=== PATIENT | male | born 1960 | race Two or more races ===

== ENCOUNTER 2019-11-13 08:48 | Outpatient (CLI) | payer OTHER | END 2019-11-13 09:03 | disposition home or self-care (01) | LOC: RAD 08:48 | PROVIDERS: ATTEND Internal Medicine | DX: M54.5 Low back pain (principal); M25.512 Pain in left shoulder; M54.2 Cervicalgia; R07.89 Other chest pain ==

== ENCOUNTER 2019-12-29 10:32 | Outpatient (CLI) | payer OTHER | END 2019-12-29 10:37 | disposition home or self-care (01) | LOC: NUCLEAR 10:32 | PROVIDERS: ATTEND Internal Medicine | DX: I67.89 Other cerebrovascular disease (principal); I77.9 Disorder of arteries and arterioles, unspecified ==

== ENCOUNTER 2020-08-22 08:13 | Outpatient (CLI) | payer OTHER ==
[~2020-08-22 08:13] MED LIST: CELEBREX200MG PO; SKELAXIN800 MG PO; ZANAFLEX2 MG PO
[2020-09-07] MEDS ORDERED: NABUMETONE750 MG PO (16:20)
== END 2020-08-22 08:19 | disposition home or self-care (01) ==
LOC: LAB 08:13
PROVIDERS: ATTEND Internal Medicine
DX: R19.5 Other fecal abnormalities (principal); E03.9 Hypothyroidism, unspecified; E53.9 Vitamin B deficiency, unspecified; D64.9 Anemia, unspecified; I10 Essential (primary) hypertension; E78.2 Mixed hyperlipidemia; N40.0 Benign prostatic hyperplasia without lower urinary tract symptoms; I80.9 Phlebitis and thrombophlebitis of unspecified site; N39.0 Urinary tract infection, site not specified; R80.1 Persistent proteinuria, unspecified

== ENCOUNTER 2020-08-23 10:12 | Outpatient (CLI) | payer OTHER ==
[2020-09-07] MEDS ORDERED: NABUMETONE750 MG PO (16:20)
== END 2020-08-23 15:00 | disposition home or self-care (01) ==
LOC: LAB 10:12
PROVIDERS: ATTEND Internal Medicine
DX: R19.5 Other fecal abnormalities (principal); E03.9 Hypothyroidism, unspecified; E53.9 Vitamin B deficiency, unspecified; D64.9 Anemia, unspecified; I10 Essential (primary) hypertension; E78.2 Mixed hyperlipidemia; N40.0 Benign prostatic hyperplasia without lower urinary tract symptoms; I80.9 Phlebitis and thrombophlebitis of unspecified site; N39.0 Urinary tract infection, site not specified; R80.1 Persistent proteinuria, unspecified

== ENCOUNTER → 2021-02-04 08:47 | Outpatient (CLI) | payer OTHER ==
[~2021-02-04 08:47] MED LIST changes: +NABUMETONE750 MG PO
== END | disposition home or self-care (01) ==
LOC: LAB 08:47
PROVIDERS: ATTEND Internal Medicine
DX: I10 Essential (primary) hypertension (principal); E55.9 Vitamin D deficiency, unspecified; D64.89 Other specified anemias; E11.69 Type 2 diabetes mellitus with other specified complication; I65.29 Occlusion and stenosis of unspecified carotid artery; R06.81 Apnea, not elsewhere classified; Z68.31 Body mass index [BMI] 31.0-31.9, adult; F41.8 Other specified anxiety disorders; E78.00 Pure hypercholesterolemia, unspecified

== ENCOUNTER 2021-08-15 15:58 | Emergency (ER) | payer OTHER ==
[~2021-08-15] VITALS: Ht 177.8 cm; Wt 102.5 kg
[2021-08-15] MEDS ORDERED: CHILDREN'S ASPI81 MG PO (16:30)
[2021-08-15] MEDS ORDERED: CRESTOR5 MG PO (16:30)
== END 2021-08-15 20:59 | disposition home or self-care (01) ==
LOC: ER 15:58
DX: B34.9 Viral infection, unspecified (principal)

== ENCOUNTER → 2022-01-08 07:08 | Outpatient (CLI) | payer OTHER ==
[~2022-01-08 07:08] MED LIST changes: +CHILDREN'S ASPI81 MG PO; +CRESTOR5 MG PO
== END | disposition home or self-care (01) ==
LOC: LAB 07:08
PROVIDERS: ATTEND Internal Medicine
DX: D64.9 Anemia, unspecified (principal); E03.8 Other specified hypothyroidism

== ENCOUNTER 2022-06-22 12:59 | Outpatient (CLI) | payer OTHER | END 2022-06-22 13:01 | disposition home or self-care (01) | LOC: RAD 12:59 | PROVIDERS: ATTEND Internal Medicine Cardiovascular Disease | DX: I11.9 Hypertensive heart disease without heart failure (principal) ==

== ENCOUNTER 2023-05-18 09:40 | Outpatient (CLI) | payer OTHER ==
[2023-05-18 11:10] LABS: ERYTHROCYTE SEDIMENTATION RATE 2 mm/hr
[2023-05-18 11:14] LABS: HEMATOCRIT 42.2 % (39.0-48.0); HEMOGLOBIN 14.6 g/dL (13-16.00); MEAN CELL VOLUME 88.2 fL (80.0-100.00); MEAN CORPUSCULAR HEMOGLOBIN 30.5 pg (27.00-32.0); MEAN CORPUSCULAR HGB CONC 34.6 g/dl (32.0-36.0); PLATELET COUNT 228 K/uL (150-450); RED BLOOD COUNT 4.79 M/uL (4.00-6.00); RED CELL DISTRIBUTION WIDTH 12.5 % (11.5-14.5)
[2023-05-18 11:59] LABS: ALBUMIN 4.1 gm/dL (3.4-5.0); BILIRUBIN TOTAL 1.29 mg/dL (0.3-1.2); CALCIUM 9.6 mg/dL (8.5-10.1); CREATININE SERUM 1.08 mg/dL (0.70-1.30); GFR 69.51; GLOBULINA 3.2 G/DL (2.4-3.5); POTASSIUM 4.66 mEq/L (3.5-5.1); TOTAL PROTEIN 7.3 gm/dL (6.4-8.2)
== END 2023-05-18 09:43 | disposition home or self-care (01) ==
LOC: LAB 09:40
PROVIDERS: ATTEND Internal Medicine
DX: I13.10 Hypertensive heart and chronic kidney disease without heart failure, with stage 1 through stage 4 chronic kidney disease, or unspecified chronic kidney disease (principal); E78.5 Hyperlipidemia, unspecified; F41.0 Panic disorder [episodic paroxysmal anxiety]; G47.33 Obstructive sleep apnea (adult) (pediatric); I77.9 Disorder of arteries and arterioles, unspecified; E11.9 Type 2 diabetes mellitus without complications; D64.9 Anemia, unspecified; I10 Essential (primary) hypertension; E78.2 Mixed hyperlipidemia

== ENCOUNTER → 2024-02-01 07:12 | Outpatient (CLI) | payer OTHER ==
[2024-02-01 09:11] LABS: ALBUMIN 3.9 gm/dL (3.4-5.0); BILIRUBIN TOTAL 1.38 mg/dL (0.3-1.2); BILIRUBIN,CONJUGATED 0.31 mg/dL (0.0-0.2); BILIRUBIN,UNCONJUGATED 1.07 mg/dL (0.0-0.6); CALCIUM 9.1 mg/dL (8.5-10.1); CREATININE SERUM 1.03 mg/dL (0.70-1.30); GFR 73.42; PHOSPHOROUS 3.5 mg/dL (2.5-4.9); POTASSIUM 4.1 mEq/L (3.5-5.1); URIC ACID 5.9 mg/dL (3.5-8.5)
== END | disposition home or self-care (01) ==
LOC: LAB 07:12
PROVIDERS: ATTEND Internal Medicine Cardiovascular Disease
DX: I12.9 Hypertensive chronic kidney disease with stage 1 through stage 4 chronic kidney disease, or unspecified chronic kidney disease (principal); N18.31 Chronic kidney disease, stage 3a; E79.0 Hyperuricemia without signs of inflammatory arthritis and tophaceous disease; E80.7 Disorder of bilirubin metabolism, unspecified

== ENCOUNTER 2024-02-22 08:17 | Outpatient (CLI) | payer OTHER | END 2024-02-22 08:25 | disposition home or self-care (01) | LOC: LAB 08:17 | DX: R17 Unspecified jaundice (principal); Z12.11 Encounter for screening for malignant neoplasm of colon ==

== ENCOUNTER 2024-09-12 07:52 | Outpatient (CLI) | payer OTHER ==
[2024-09-12 09:00] LABS: PH,URINE 5.5 (5.0-8.0); URINE APPEARANCE Clear; URINE BILIRRUBIN Negative (NEGATIVE); URINE BLOOD Large; URINE COLOR Yellow; URINE GLUCOSE Negative (NEGATIVE); URINE KETONE Trace (NEGATIVE); URINE LEUKOCYTE Negative; URINE NITRATE Negative; URINE PROTEIN 30 (NEGATIVE)
[2024-09-12 09:02] LABS: URINE BACTERIA 8.5 uL (0.0-1933); URINE EPITHELIAL CELLS 3.1 uL (0.0-38.8); URINE RBC 110.6 uL (0.0-20.8)
[2024-09-12 09:35] LABS: BASO % 0.4 % (0.1-1.2); EOS # 0.06 (0.04-0.54); EOS % 1.1 % (0.7-7.0); HEMATOCRIT 39.2 % (40.1-51.0); HEMOGLOBIN 13.3 g/dL (13.7-17.5); LYMPH # 1.38 (1.18-3.74); LYMPH % 26.2 % (19.3-53.1); MEAN CORPUSCULAR HEMOGLOBIN 29.9 pg (25.6-32.2); MONO # 0.53 (0.24-0.82); MONO % 10.1 % (4.7-12.5); NEUT # 3.26 (1.56-6.13); NEUT % 61.8 % (34.0-71.1); PLATELET COUNT 202 K/uL (163-369); RED BLOOD COUNT 4.45 M/uL (4.63-6.08); RED CELL DISTRIBUTION WIDTH 11.8 % (11.6-14.4)
[2024-09-12 09:38] LABS: BILIRUBIN TOTAL 0.72 mg/dL (0.3-1.2); BILIRUBIN,CONJUGATED 0.23 mg/dL (0.0-0.2); BILIRUBIN,UNCONJUGATED 0.49 mg/dL (0.0-0.6); CALCIUM 8.6 mg/dL (8.5-10.1); CHOL HDL RATIO 2.1 (0-5.0); CREATININE SERUM 1.12 mg/dL (0.70-1.30); GFR 66.43; GLOBULINA 2.9 G/DL (2.4-3.5); POTASSIUM 3.65 mEq/L (3.5-5.1); T4 FREE 0.84 NG/ML (0.76-1.46); TOTAL PROTEIN 6.9 gm/dL (6.4-8.2); TSH 3.35 uIU/mL (0.358-3.74)
== END 2024-09-12 09:06 | disposition home or self-care (01) ==
LOC: LAB 07:52
PROVIDERS: ATTEND Internal Medicine
DX: E11.65 Type 2 diabetes mellitus with hyperglycemia (principal); E11.69 Type 2 diabetes mellitus with other specified complication; E03.9 Hypothyroidism, unspecified; N39.0 Urinary tract infection, site not specified; I10 Essential (primary) hypertension; E78.2 Mixed hyperlipidemia; R94.5 Abnormal results of liver function studies

== ENCOUNTER 2025-01-02 08:19 | Outpatient (CLI) | payer OTHER ==
[2025-01-02 09:54] LABS: BASO % 0.2 % (0.1-1.2); EOS # 0.05 (0.04-0.54); EOS % 0.9 % (0.7-7.0); LYMPH # 0.98 (1.18-3.74); LYMPH % 18.2 % (19.3-53.1); MEAN PLATELET VOLUME 10.70 fl (9.4-12.4); MONO # 0.51 (0.24-0.82); MONO % 9.5 % (4.7-12.5); NEUT # 3.83 (1.56-6.13); NEUT % 71.0 % (34.0-71.1); RED CELL DISTRIBUTION WIDTH 11.3 % (11.6-14.4)
[2025-01-02 10:11] LABS: ERYTHROCYTE SEDIMENTATION RATE 3 mm/hr (0-20)
[2025-01-02 10:29] LABS: ALT/SGPT 28.0 U/L (12-78); AST/SGOT 25.0 U/L (15-37); BILIRUBIN TOTAL 1.24 mg/dL (0.3-1.2); BUN CREA RATIO 16.0 (7.0-25.0); CHOL HDL RATIO 2.0 (0-5.0); CREATININE SERUM 0.95 mg/dL (0.70-1.30); GFR 80.33; GLOBULINA 2.9 G/DL (2.4-3.5); GLUCOSE FASTING 89.0 mg/dL (65-100); HDL 42.0 mg/dl (40-60); LDL 21.0 mg/dl (0-130); OSMOLALITY SERUM 285.0 MOSM/KG (275-295); T4 FREE 1.01 NG/ML (0.76-1.46); TSH 1.65 uIU/mL (0.358-3.74); VLDL 23.0 (0-39)
[2025-01-02 11:13] LABS: URINE BILIRRUBIN SMALL (NEGATIVE); URINE BLOOD MODERATE; URINE GLUCOSE NEGATIVE (NEGATIVE); URINE KETONE NEGATIVE (NEGATIVE); URINE LEUKOCYTE NEGATIVE; URINE NITRATE NEGATIVE; URINE PROTEIN 30 (NEGATIVE); URINE UROBILINOGEN 1.0 E.U./dl
[2025-01-02 11:51] LABS: URINE APPEARANCE CLEAR; URINE COLOR YELLOW
[2025-01-02 11:52] LABS: URINE RBC 19-25 /HPF; URINE WBC 0-2 /hpf
[2025-01-02 11:53] LABS: URINE BACTERIA FEW; URINE CRYSTALS NEGATIVE /HPF; URINE MUCUS SCANT
== END 2025-01-02 08:24 | disposition home or self-care (01) ==
LOC: LAB 08:19
PROVIDERS: ATTEND Internal Medicine
DX: I13.10 Hypertensive heart and chronic kidney disease without heart failure, with stage 1 through stage 4 chronic kidney disease, or unspecified chronic kidney disease (principal); F39 Unspecified mood [affective] disorder; F13.10 Sedative, hypnotic or anxiolytic abuse, uncomplicated; E78.5 Hyperlipidemia, unspecified; F41.0 Panic disorder [episodic paroxysmal anxiety]; E11.9 Type 2 diabetes mellitus without complications; R80.1 Persistent proteinuria, unspecified; D64.9 Anemia, unspecified; E03.9 Hypothyroidism, unspecified; I10 Essential (primary) hypertension; E78.2 Mixed hyperlipidemia; N39.0 Urinary tract infection, site not specified